=== PATIENT | male | born 1960 | race Caucasian/White ===

== ENCOUNTER 2020-05-08 11:05 | Inpatient (IN) ==
[2020-05-08] MEDS ORDERED: CARDIZEM INJ 50 MG VIAL ONE (11:26)
[2020-05-08] MEDS ORDERED: CARDIZEM INJ 50 MG VIAL IVP ONE ×2 (11:27→11:45)
[2020-05-08] MEDS ORDERED: TORADOL 30 MG VIAL IVP ONE (11:27)
[2020-05-08] MEDS ORDERED: TORADOL 30 MG VIAL ONE (11:32)
--- NOTE | 2020-05-08 11:32 | DR.SOBA ---
HPI Time Seen Time Seen by Provider: 05/08/20 11:26 Primary Care Physician Primary Care Physician: SHEY Complaints Chief Complaint Doctors Comments: Patient in afib with RVR in Er. Chief Complaint:: PT. C/O SHORTNESS OF BREATH AND CHEST PAIN. ONSET OF FRIDAY. PT. HAS A HX. OF PE. COVID-19 Coronavirus risk:travel/contact w/high risk person: No Has patient experienced Coronavirus symptoms: No Reviewed Nurses Notes Reviewed: Yes Source History Provided: Patient Mode of Arrival Mode of Arrival: Ambulatory Timing Onset of Chief Complaint: 05/05/20 Duration Duration: Days Context Onset:: At Rest History of:: DVT/PE Currently on:: Neither Prehospital Care:: None Modifying Factors Worsens:: Exertion Improves:: Nothing Associated Signs and Symptoms Associated Signs and Symptoms: Leg Swelling (right leg swelling x 1 week) and Anxiety If Chest Pain Quality: Aching If Cough Cough: None PMH PMH Past Medical History: Yes Past Medical History: GERD Past Medical History Comment: PE, BPH, DVT, HIATAL HERNIA Past Surgical History: No Surgical History: No History Family History History of Family Medical Conditions: No Social History Does patient currently use any type of tobacco product: Yes Have you used tobacco products in the last 12 months: Yes Type of Tobacco Use: Cigarettes Does any household member use tobacco: Yes Alcohol Use: None Do you use any recreational Drugs:: No Lives With: Family Lives Where: Home Travel Risk Coronavirus risk:travel/contact w/high risk person: No Has patient experienced Coronavirus symptoms: No Infectious screening In the last 2 months have you had wt loss of >10#?: NO Have you had fever, night sweats or hemotysis?: No Have you traveled outside the country in the last 6 months?: No Isolation: Standard ROS Review of Systems Constitutional: No Symptoms Reported Eyes: No Symptoms Reported ENTM: No Symptoms Reported Respiratoy: Short of Breath Cardiovascular: Chest Pain Gastrointestinal/Abdominal: No Symptoms Reported Genitourinary: No Symptoms Reported Neurological: No Symptoms Reported Musculoskeletal: No Symptoms Reported Integumentary: No Symptoms Reported Endocrine: No Symptoms Reported Psychiatric: Anxiety All Other Systems: Reviewed and Negative PE Vital Signs Vitals: Temperature 98.3 F Pulse Rate 133 Respiratory Rate 21 Blood Pressure 112/84 O2 Sat by Pulse Oximetry 98 General Limitations: No Limitations General Appearance: Alert and Anxious; negative In No Apparent Distress Head Head Exam: Normal Inspection, Atraumatic and Normocephalic Eyes Eye exam: Normal Appearance and EOMI ENT ENT Exam: Normal Exam and Normal Oropharynx Neck Neck Exam: Normal Inspection, Full ROM and Trachea Midline Chest Chest Inspection: Normal Inspection Respiratory Respiratory Exam: Normal Lung Sounds Bilat; negative Accessory Muscle Use Respiratory Exam: Bilateral: Clear to Auscultation Cardiovascular Cardiovascular Exam: Normal Rhythm and Tachycardia Abdominal Exam Abdominal Exam: Normal Inspection, Normal Bowel Sounds and Soft; negative Distention, Tenderness and Guarding Abdominal Tenderness: negative RUQ, RLQ, LUQ, LLQ, Epigastrium, Suprapubic, Diffuse, Mild, Moderate, Severe and Other Extremities Extremities Exam: Normal Inspection and Full ROM Back Back Exam: Normal Inspection and Full ROM Neurologic Neurological Exam: Alert, Oriented X3, CN II-XII Intact and Normal Gait Psychiatric Psychiatric Exam: Anxious ROR Labs Reviewed Result Diagrams: 05/08/20 11:25 05/08/20 11:25 Laboratory: WBC 5.6 X10^3/uL (3.6-10.0) 05/08/20 11:25 RBC 3.57 X10^6/uL (4.7-6.0) L 05/08/20 11:25 Hgb 12.0 g/dL (13.5-18.0) L 05/08/20 11:25 Hct 35.6 % (42.0-54.0) L 05/08/20 11:25 MCV 99.8 fL (80.0-100.0) 05/08/20 11:25 MCH 33.5 pg (27.0-34.0) 05/08/20 11:25 MCHC 33.6 g/dL (33.0-35.0) 05/08/20 11:25 RDW 13.7 % (11.6-16.5) 05/08/20 11:25 Plt Count 147 X10^3/uL (150.0-450.0) L 05/08/20 11:25 MPV 9.5 fL (7.4-11.0) 05/08/20 11:25 Neut % (Auto) 78.1 % (42.0-75.0) H 05/08/20 11:25 Lymph % (Auto) 11.2 % (21.0-51.0) L 05/08/20 11:25 Motley % (Auto) 9.1 % (0.0-13.0) 05/08/20 11:25 Eos % (Auto) 0.9 % (0.9-2.9) 05/08/20 11:25 Baso % (Auto) 0.7 % (0.2-1.0) 05/08/20 11:25 Neut # (Auto) 4.4 x10^3/uL (2.2-4.8) 05/08/20 11:25 Lymph # (Auto) 0.6 X10^3/uL (1.3-2.9) L 05/08/20 11:25 Motley # (Auto) 0.5 x10^3/uL (0.3-0.8) 05/08/20 11:25 Eos # (Auto) 0.0 x10^3/uL (0.0-0.2) 05/08/20 11:25 Baso # (Auto) 0.0 X10^3/uL (0.0-0.1) 05/08/20 11:25 Absolute Nucleated RBC 0.1 /100WBC 05/08/20 11:25 PT 15.8 SECONDS (11.8-14.3) 05/08/20 11:25 INR Target Range - 05/08/20 11:25 INR 1.30 (0.8-1.3) 05/08/20 11:25 D-Dimer 1.55 ug/ml (0.0-0.57) H* 05/08/20 11:25 Sodium 132 mmol/L (136-145) L 05/08/20 11:25 Corrected Sodium 134 mmol/L (136-145) L 05/08/20 11:25 Potassium 3.8 mmol/L (3.5-5.1) 05/08/20 11:25 Chloride 101 mmol/L (98-107) 05/08/20 11:25 Carbon Dioxide 25.4 mmol/L (21-32) 05/08/20 11:25 BUN 16 mg/dL (7-18) 05/08/20 11:25 Creatinine 1.19 mg/dL (0.70-1.30) 05/08/20 11:25 Est GFR (MDRD) Af Amer > 60 (>60) 05/08/20 11:25 Est GFR (MDRD) Non-Af > 60 (>60) 05/08/20 11:25 Glucose 192 mg/dL (65-99) H 05/08/20 11:25 Calcium 8.3 mg/dL (8.5-10.1) L 05/08/20 11:25 Corrected Calcium 9.4 mg/dL (8.5-10.1) 05/08/20 11:25 Total Bilirubin 1.20 mg/dL (0.2-1.0) H 05/08/20 11:25 AST 96 Units/L (15-37) H 05/08/20 11:25 ALT 98 Units/L (12-78) H 05/08/20 11:25 Alkaline Phosphatase 82 Units/L (46-116) 05/08/20 11:25 Creatine Kinase 214 Units/L (39-308) 05/08/20 11:25 CK-MB (CK-2) 2.2 ng/mL (0-4.0) 05/08/20 11:25 CK/CKMB % Calc 1.0 % (<4) 05/08/20 11:25 Troponin I < 0.02 ng/mL (0-1.5) 05/08/20 11:25 B-Natriuretic Peptide 475 pg/mL (0-79) H 05/08/20 11:25 Total Protein 6.2 g/dL (6.4-8.2) L 05/08/20 11:25 Albumin 2.6 g/dL (3.4-5.0) L 05/08/20 11:25 Globulin 3.6 g/dL (2.5-4.5) 05/08/20 11:25 Albumin/Globulin Ratio 0.7 Ratio (1.1-2.1) L 05/08/20 11:25 SARS-CoV-2 (PCR) Negative (NEGATIVE) 05/08/20 13:25 XRAY XRAY Interpreted by: Radiologist X-ray Results: CTA chest: no PE, Effusion/pneumonia? EKG Rate: 175 Rhythm: Afib (rapid response) Opioid Opioid Risk Tool Age (Sal box if 16-45): No History of Preadolescent Sexual Abuse: No Total: 0 Total Score Risk Category: Low Risk Copyright: [employer] predicting aberrant behaviors Diagnosis Discharge Problem: Acute dyspnea Atrial fibrillation Qualifiers: Atrial fibrillation type: unspecified Qualified Code(s): I48.91 - Unspecified atrial fibrillation Instructions Forms: Precautions for COVID19 Patient Portal Social Distancing
[2020-05-08] MEDS ORDERED: ELIQUIS PO ONE (11:46)
[2020-05-08 11:48] LABS: BASOPHILS % (AUTO) 0.7 % (0.2-1.0); EOSINOPHILS % (AUTO) 0.9 % (0.9-2.9); HEMATOCRIT 35.6 % (42.0-54.0); LYMPHOCYTES # (AUTO) 0.6 X10^3/uL (1.3-2.9); LYMPHOCYTES % (AUTO) 11.2 % (21.0-51.0); MEAN CORPUSCULAR HEMOGLOBIN 33.5 pg (27.0-34.0); MEAN CORPUSCULAR HGB CONC 33.6 g/dL (33.0-35.0); MEAN CORPUSCULAR VOLUME 99.8 fL (80.0-100.0); MEAN PLATELET VOLUME 9.5 fL (7.4-11.0); MONOCYTES # (AUTO) 0.5 x10^3/uL (0.3-0.8); MONOCYTES % (AUTO) 9.1 % (0.0-13.0); NEUTROPHILS # (AUTO) 4.4 x10^3/uL (2.2-4.8); NEUTROPHILS % (AUTO) 78.1 % (42.0-75.0); PLATELET COUNT 147 X10^3/uL (150.0-450.0); RED BLOOD COUNT 3.57 X10^6/uL (4.7-6.0); RED CELL DISTRIBUTION WIDTH 13.7 % (11.6-16.5); WHITE BLOOD COUNT 5.6 X10^3/uL (3.6-10.0)
[2020-05-08] MEDS ORDERED: NS 1000 ML 1,000 ML ONE (11:58)
--- NOTE | 2020-05-08 11:59 | RAD ---
HISTORYCPSTUDYCHEST, 1 VIEWCOMPARISONNoneFINDINGSThe trachea is midline. The cardiac silhouette is unremarkable . The lungs are clear without focal infiltrate or effusion. The bony thorax is unremarkable.IMPRESSIONNo acute cardiopulmonary disease.Electronically signed by: AMI MILLER (May 08, 2020 11:58:02)
[2020-05-08] MEDS: NS 1000 ML 1,000 ML IV SCH ×2 (12:05→22:00)
[2020-05-08] MEDS: CARDIZEM INJ 125 MG VIAL 125 MG in NS 100 ML IV 100 ML IV PRN ×3 (12:10→22:18)
[2020-05-08 12:28] LABS: BLOOD UREA NITROGEN 16 mg/dL (7-18); CALCIUM 8.3 mg/dL (8.5-10.1); CARBON DIOXIDE 25.4 mmol/L (21-32); CHLORIDE 101 mmol/L (98-107); COR NA(FOR HYPERGLY) 134 mmol/L (136-145); CREATININE 1.19 mg/dL (0.70-1.30); SODIUM 132 mmol/L (136-145); TROPONIN I < 0.02 ng/mL (0-1.5); eGFR NON BLACK RACES > 60 (>60)
[2020-05-08 12:43] LABS: ALANINE AMINOTRANSFERASE 98 Units/L (12-78); ALBUMIN 2.6 g/dL (3.4-5.0); ALKALINE PHOSPHATASE 82 Units/L (46-116); ASPARTATE AMINO TRANSFERASE 96 Units/L (15-37); COR CA(FOR HYPOALB) 9.4 mg/dL (8.5-10.1); CREATINE KINASE 214 Units/L (39-308); CREATINE KINASE MB 2.2 ng/mL (0-4.0); TOTAL PROTEIN 6.2 g/dL (6.4-8.2)
--- NOTE | 2020-05-08 13:07 | CT ---
HISTORYELEVATED DDIMERSTUDYCTA CHESTCOMPARISONNoneTECHNIQUEMultiple axial images of the chest were obtained from the thoracic inlet to the upper abdomen after the administration of IV contrast. 3D reconstructions utilizing axial MIPS imaging was performed and reviewed. Dose reduction techniques including Automated Exposure Control (AEC) and adjustment of mA and kV were utilized.FINDINGSThe mediastinum does not demonstrate significant pathological lymphadenopathy. Small reactive lymph nodes are noted. There is no pericardial effusion observed. The thoracic aorta is normal in its contour without evidence for aneurysmal dilatation. The central pulmonary arterial system does not demonstrate central filling defects to suggest pulmonary emboli.Evaluation of the lung parenchyma demonstrates small layering effusions with associated infiltrates which may be on the basis of atelectasis versus pneumonia.. No pulmonary nodule or mass can be identified. The bony thorax is unremarkable in its appearance . The visualized portions of the upper abdomen are grossly unremarkable .IMPRESSIONSmall layering effusions with bibasilar infiltratesElectronically signed by: AMI MILLER (May 08, 2020 13:05:19)
[2020-05-08] MEDS ORDERED: CARDIZEM INJ 125 MG VIAL 125 MG in NS 100 ML IV 100 ML IV PRN (14:04)
[2020-05-08] MEDS: XOPENEX 1.25 MG/3 ML NEBULE NEB SCH ×2 (16:45→20:05)
[2020-05-08] MEDS ORDERED: PROVENTIL NEB TX 0.083% 2.5MG/ 3ML NEB SCH (17:00)
[2020-05-08 17:40] VITALS: BMI 28.0
[2020-05-08] MEDS: PROTONIX TAB 40 MG PO SCH (18:39)
[2020-05-08 19:53] LABS: ABG BASE EXCESS 0.9 mmol/L (-2.0-2.0); ABG HCO3 23.1 mmol/L (22-26)
[2020-05-08] MEDS: PULMICORT NEB TX 0.5 MG NEB SCH (20:05)
[2020-05-08 20:32] LABS: BILIRUBIN,URINE 1+ (NEGATIVE); BLOOD/HEMOGLOBIN,URINE 1+ (NEGATIVE); GLUCOSE, URINE 1+ (NEGATIVE); KETONES,URINE 1+ (NEGATIVE); LEUKOCYTE ESTERASE ,URINE 1+ (NEGATIVE); NITRITES,URINE NEGATIVE (NEGATIVE); PROTEIN,URINE 2+ (NEGATIVE); UROBILINOGEN,URINE 2+ (NORMAL)
[2020-05-08 20:38] LABS: APPEARANCE,URINE CLEAR (CLEAR); BACTERIA,URINE TRACE /HPF (NEGATIVE); COLOR,URINE AMBER (YELLOW); RBC,URINE 0-2 /HPF (0-3); SQUAMOUS EPITHELIAL CELL,UR FEW /HPF (NEGATIVE)
[2020-05-08] MEDS: BENADRYL INJ 50 MG VIAL IVP SCH (21:00)
[2020-05-08] MEDS: ELIQUIS PO SCH (22:00)
[2020-05-08] MEDS: FLOMAX PO SCH (22:21)
[2020-05-09] MEDS: BENADRYL INJ 50 MG VIAL IVP SCH ×2 (03:17→11:34)
[2020-05-09] MEDS: NS 1000 ML 1,000 ML IV SCH ×5 (05:19→20:44)
[2020-05-09 06:07] LABS: BASOPHILS % (AUTO) 0.7 % (0.2-1.0); EOSINOPHILS # (AUTO) 0.1 x10^3/uL (0.0-0.2); EOSINOPHILS % (AUTO) 1.1 % (0.9-2.9); HEMATOCRIT 35.1 % (42.0-54.0); HEMOGLOBIN 11.9 g/dL (13.5-18.0); LYMPHOCYTES # (AUTO) 0.5 X10^3/uL (1.3-2.9); LYMPHOCYTES % (AUTO) 6.9 % (21.0-51.0); MEAN CORPUSCULAR HEMOGLOBIN 33.7 pg (27.0-34.0); MEAN CORPUSCULAR HGB CONC 33.7 g/dL (33.0-35.0); MEAN CORPUSCULAR VOLUME 99.8 fL (80.0-100.0); MEAN PLATELET VOLUME 9.6 fL (7.4-11.0); MONOCYTES # (AUTO) 0.6 x10^3/uL (0.3-0.8); MONOCYTES % (AUTO) 9.5 % (0.0-13.0); NEUTROPHILS # (AUTO) 5.4 x10^3/uL (2.2-4.8); NEUTROPHILS % (AUTO) 81.8 % (42.0-75.0); PLATELET COUNT 154 X10^3/uL (150.0-450.0); RED BLOOD COUNT 3.52 X10^6/uL (4.7-6.0); RED CELL DISTRIBUTION WIDTH 13.8 % (11.6-16.5); WHITE BLOOD COUNT 6.6 X10^3/uL (3.6-10.0)
[2020-05-09] MEDS: CARDIZEM INJ 125 MG VIAL 125 MG in NS 100 ML IV 100 ML IV PRN ×2 (06:32→20:45)
[2020-05-09 06:40] LABS: ALANINE AMINOTRANSFERASE 81 Units/L (12-78); ALBUMIN 2.5 g/dL (3.4-5.0); ALKALINE PHOSPHATASE 75 Units/L (46-116); ASPARTATE AMINO TRANSFERASE 59 Units/L (15-37); BLOOD UREA NITROGEN 14 mg/dL (7-18); CALCIUM 8.1 mg/dL (8.5-10.1); CARBON DIOXIDE 25.6 mmol/L (21-32); CHLORIDE 104 mmol/L (98-107); CKMB % 0.9 % (<4); COR CA(FOR HYPOALB) 9.3 mg/dL (8.5-10.1); CREATINE KINASE 110 Units/L (39-308); CREATINE KINASE MB < 1.0 ng/mL (0-4.0); CREATININE 0.95 mg/dL (0.70-1.30); SODIUM 138 mmol/L (136-145); TOTAL PROTEIN 6.1 g/dL (6.4-8.2); TROPONIN I < 0.02 ng/mL (0-1.5); eGFR NON BLACK RACES > 60 (>60)
[2020-05-09] MEDS ORDERED: PROSCAR ONE (07:54)
[2020-05-09] MEDS: XOPENEX 1.25 MG/3 ML NEBULE NEB SCH ×4 (08:10→20:46)
[2020-05-09] MEDS: PULMICORT NEB TX 0.5 MG NEB SCH ×2 (08:10→20:46)
[2020-05-09] MEDS: ELIQUIS PO SCH ×2 (08:23→20:44)
[2020-05-09] MEDS: PROSCAR PO SCH (08:23)
[2020-05-09] MEDS: PROTONIX TAB 40 MG PO SCH (08:24)
[2020-05-09] MEDS: LOPRESSOR TAB 25 MG PO SCH ×2 (08:26→20:44)
[2020-05-09] MEDS: SEROquel TAB 25 mg PO SCH ×4 (08:27→20:45)
[2020-05-09] MEDS: NICOTINE PATCH TD SCH (11:32)
[2020-05-09] MEDS: TYLENOL 325 MG TAB PO PRN ×2 (11:32→18:20)
--- NOTE | 2020-05-09 13:56 | DR.H&P ---
H&P - History & Physical for Day of: H&P Date: 05/08/20 - Chief Complaint Chief Complaint: SOB - History of Present Illness History of Present Illness: PT IS 59WM ER ADMISSION WITH CO SOB. PT REPORTS HE HAS HAD BLOOD CLOT IN HIS LUNGS IN THE PAST. PT IS A DAILY SMOKER AND DENIES ANY KNOWN COVID EXPOSURE. PT WAS IN AFIB WITH RVR IN ER, ADMITTED TO ICU. CTA CHEST REVEALED -PE, + EFFUSIONS/ PNEUMONIA. - Past Medical History Past Medical History: Arthritis, GERD - Past Surgical History Surgical History: No History - Family History Family Medical History: Diabetes Mellitus, Cancer, Hypertension - Social History Does patient currently use any type of tobacco product: Yes Have you used tobacco products in the last 12 months: Yes Type of Tobacco Use: Cigarettes Does any household member use tobacco: Yes Alcohol Use: None Drug Use: None - Medications Home Medications: No Known Drug Allergies Allergy (Verified 05/08/20 11:22) CONTINUE taking the following medications apixaban [Eliquis] 5 mg PO BID 05/08/20 [History] finasteride 5 mg PO DAILY 05/08/20 [History] pantoprazole 40 mg PO DAILY 05/08/20 [History] tamsulosin 0.4 mg PO HS 05/08/20 [History] - Review of Systems Constitutional: denies: Fever Eyes: No Symptoms Reported Respiratory: Shortness of Breath Cardiovascular: Palpitations Gastrointestinal: Nausea Genitourinary: No Symptoms Reported Musculoskeletal: No Symptoms Reported Skin: No Symptoms Reported Neurological: No Symptoms Reported - Physical Exam Vital Signs: Temperature 98.3 F Pulse Rate 78 Respiratory Rate 14 Blood Pressure 94/55 O2 Sat by Pulse Oximetry 94 Oriented: Normal Eyes: Normal Ear: Normal Nose: Normal Throat: Normal Respiratory: Diminished Throughout Cardiovascular: Tachycardia, Irregular : Normal Auscultation: Bowel Sounds: Normal Palpation: Normal Tenderness: Normal Skin: Decreased Turgur Musculoskeletal: Normal Psychiatric: Anxiety Affect: Anxious Speech Pattern: Clear, Appropriate - Assessment/Plan (1) Atrial fibrillation Qualifiers: Atrial fibrillation type: unspecified Qualified Code(s): I48.91 - Unspecified atrial fibrillation Status: Acute Plan: ADMIT, ICU. CARDIZEM DRIP, SERIAL CE AND EKG. BP CONTROL, ATBX THERAPY, RESP CONSULT. SUPPLEMENTAL O2. COVID 19 ON ADMISSION (2) Acute dyspnea Status: Acute - Allergies Allergies/Adverse Reactions: Allergies Allergy/AdvReac Type Severity Reaction Status Date / Time No Known Drug Allergies Allergy Verified 05/08/20 11:22
[2020-05-09] MEDS: ROCEPHIN 1 GRAM IV PREMIX 1 G/50 ML IV.SOLN. IV SCH (18:19)
[2020-05-09] MEDS: BENADRYL INJ 50 MG VIAL IVP PRN (18:33)
[2020-05-09] MEDS ORDERED: PREVNAR 13 IM ONE (19:00)
[2020-05-09] MEDS: FLOMAX PO SCH (20:44)
[2020-05-09] MEDS: NEURONTIN CAP 100 MG PO PRN (22:40)
[2020-05-10] MEDS: BENADRYL INJ 50 MG VIAL IVP PRN ×2 (05:00→22:51)
[2020-05-10] MEDS: NEURONTIN CAP 100 MG PO PRN ×3 (05:00→21:43)
[2020-05-10] MEDS: NS 1000 ML 1,000 ML IV SCH ×3 (05:14→21:41)
[2020-05-10 05:42] LABS: BASOPHILS % (AUTO) 0.9 % (0.2-1.0); EOSINOPHILS # (AUTO) 0.1 x10^3/uL (0.0-0.2); EOSINOPHILS % (AUTO) 2.6 % (0.9-2.9); HEMATOCRIT 36.2 % (42.0-54.0); LYMPHOCYTES # (AUTO) 0.5 X10^3/uL (1.3-2.9); MEAN CORPUSCULAR HEMOGLOBIN 33.4 pg (27.0-34.0); MEAN CORPUSCULAR HGB CONC 33.2 g/dL (33.0-35.0); MEAN CORPUSCULAR VOLUME 100.6 fL (80.0-100.0); MONOCYTES # (AUTO) 0.6 x10^3/uL (0.3-0.8); MONOCYTES % (AUTO) 11.4 % (0.0-13.0); NEUTROPHILS % (AUTO) 76.1 % (42.0-75.0); PLATELET COUNT 151 X10^3/uL (150.0-450.0); RED BLOOD COUNT 3.59 X10^6/uL (4.7-6.0); RED CELL DISTRIBUTION WIDTH 13.5 % (11.6-16.5); WHITE BLOOD COUNT 5.2 X10^3/uL (3.6-10.0)
[2020-05-10 05:48] LABS: ALANINE AMINOTRANSFERASE 66 Units/L (12-78); ALBUMIN 2.4 g/dL (3.4-5.0); ALKALINE PHOSPHATASE 77 Units/L (46-116); ASPARTATE AMINO TRANSFERASE 38 Units/L (15-37); BLOOD UREA NITROGEN 13 mg/dL (7-18); CALCIUM 8.1 mg/dL (8.5-10.1); CARBON DIOXIDE 21.8 mmol/L (21-32); CHLORIDE 105 mmol/L (98-107); COR CA(FOR HYPOALB) 9.4 mg/dL (8.5-10.1); SODIUM 137 mmol/L (136-145); eGFR NON BLACK RACES > 60 (>60)
[2020-05-10] MEDS: TYLENOL 325 MG TAB PO PRN ×3 (06:01→21:15)
[2020-05-10] MEDS: SEROquel TAB 25 mg PO SCH ×3 (09:00→17:35)
[2020-05-10] MEDS: ROCEPHIN 1 GRAM IV PREMIX 1 G/50 ML IV.SOLN. IV SCH (09:00)
[2020-05-10] MEDS: ELIQUIS PO SCH ×2 (09:00→21:41)
[2020-05-10] MEDS: PROSCAR PO SCH (09:01)
[2020-05-10] MEDS: NICOTINE PATCH TD SCH (09:01)
[2020-05-10] MEDS: PROTONIX TAB 40 MG PO SCH (09:01)
[2020-05-10] MEDS: LOPRESSOR TAB 25 MG PO SCH (09:01)
[2020-05-10] MEDS: PULMICORT NEB TX 0.5 MG NEB SCH ×2 (09:50→21:13)
[2020-05-10] MEDS ORDERED: MAALOX or MYLANTA PO PRN (09:50)
[2020-05-10] MEDS: XOPENEX 1.25 MG/3 ML NEBULE NEB SCH ×3 (09:50→16:28)
--- NOTE | 2020-05-10 09:54 | RAD ---
HISTORYPneumoniaSTUDYChest AP [id number] plain film and CTA chestFINDINGSThe heart is enlarged. The evi are prominent and somewhat indistinct and there is some perihilar interstitial change suggestive of mild interstitial edema. The upper lung hidalgo are clear. Bilateral lower lobe infiltrate and bilateral pleural effusions are present both increasing since the prior examination. Bony thorax is unremarkable.IMPRESSIONCardiomegaly with interval development of mild congestive heart failureIncreasing bilateral lower lobe infiltrates and increasing bilateral pleural effusions when compared with the CTA chest 05/08/2020Electronically signed by: RENAE SAMPSON (May 10, 2020 09:52:26)
[2020-05-10] MEDS ORDERED: XOPENEX 1.25 MG/3 ML NEBULE NEB ONE (11:46)
[2020-05-10] MEDS: CARDIZEM INJ 125 MG VIAL 125 MG in NS 100 ML IV 100 ML IV PRN (12:28)
[2020-05-10] MEDS: LASIX IVP SCH (13:58)
[2020-05-10] MEDS: CARDIZEM ER 60 MG 12-HR PO SCH ×2 (14:00→22:50)
--- NOTE | 2020-05-10 15:10 | VAS ---
HISTORYBilateral leg swellingSTUDYBilateral lower extremity venous ultrasoundCOMPARISONNoneFINDINGSUltrasound evaluation of the deep venous system of both legs was perf ormed from the level of the inguinal ligament down to the calf. On both sides, the deep system is wid mo patent with good flow and compressibility seen along their course. No evidence of intraluminal th rombus is seen in either leg.IMPRESSIONNo deep vein thrombosis is identified in either lower extremit y.Electronically signed by: YAKOV CESAR (May 10, 2020 15:08:38)
[2020-05-10] MEDS: FLOMAX PO SCH (21:41)
[2020-05-11] MEDS: NS 1000 ML 1,000 ML IV SCH ×2 (04:51→12:55)
[2020-05-11] MEDS: CARDIZEM ER 60 MG 12-HR PO SCH ×2 (05:00→12:59)
[2020-05-11 05:18] LABS: BASOPHILS % (AUTO) 0.7 % (0.2-1.0); EOSINOPHILS # (AUTO) 0.2 x10^3/uL (0.0-0.2); HEMOGLOBIN 12.5 g/dL (13.5-18.0); LYMPHOCYTES # (AUTO) 0.6 X10^3/uL (1.3-2.9); LYMPHOCYTES % (AUTO) 9.9 % (21.0-51.0); MEAN CORPUSCULAR HEMOGLOBIN 32.7 pg (27.0-34.0); MEAN CORPUSCULAR HGB CONC 32.7 g/dL (33.0-35.0); MEAN CORPUSCULAR VOLUME 99.9 fL (80.0-100.0); MONOCYTES # (AUTO) 0.8 x10^3/uL (0.3-0.8); MONOCYTES % (AUTO) 13.6 % (0.0-13.0); NEUTROPHILS # (AUTO) 4.2 x10^3/uL (2.2-4.8); NEUTROPHILS % (AUTO) 71.8 % (42.0-75.0); PLATELET COUNT 185 X10^3/uL (150.0-450.0); RED CELL DISTRIBUTION WIDTH 13.8 % (11.6-16.5); WHITE BLOOD COUNT 5.8 X10^3/uL (3.6-10.0)
[2020-05-11 05:27] LABS: ALANINE AMINOTRANSFERASE 52 Units/L (12-78); ALBUMIN 2.3 g/dL (3.4-5.0); ALKALINE PHOSPHATASE 75 Units/L (46-116); ASPARTATE AMINO TRANSFERASE 28 Units/L (15-37); BLOOD UREA NITROGEN 11 mg/dL (7-18); CALCIUM 8.4 mg/dL (8.5-10.1); CARBON DIOXIDE 26.3 mmol/L (21-32); CHLORIDE 106 mmol/L (98-107); COR CA(FOR HYPOALB) 9.8 mg/dL (8.5-10.1); COR NA(FOR HYPERGLY) 141 mmol/L (136-145); CREATININE 0.99 mg/dL (0.70-1.30); SODIUM 141 mmol/L (136-145); eGFR NON BLACK RACES > 60 (>60)
--- NOTE | 2020-05-11 06:13 | RAD ---
HISTORYPNEUMONIASTUDYCHEST, 1 VIEWCOMPARISONOne day prior.TECHNIQUEAP view of the chest 2 imagesFINDINGSCardiac and mediastinal contours appear stable. Stable mid and lower lung predominant airspace disease. No pneumothorax. No large pleural effusion.IMPRESSIONNo significant change.Electronically signed by: Sage Boyce (May 11, 2020 06:11:45)
[2020-05-11] MEDS: XOPENEX 1.25 MG/3 ML NEBULE NEB SCH ×2 (06:24→12:05)
[2020-05-11] MEDS ORDERED: POTASSIUM CHLORIDE LIQ 20 MEQ UDC PO PRN (06:47)
[2020-05-11] MEDS ORDERED: POTASSIUM CHL 40 MEQ/NS 0.45% 500 ML IV PRN (06:47)
[2020-05-11] MEDS ORDERED: K-DUR TAB 20 MEQ PO PRN (06:47)
[2020-05-11] MEDS ORDERED: K-RIDER 10 MEQ/NS 100 ML 10 MEQ/100 ML BAG IV PRN (06:47)
[2020-05-11] MEDS ORDERED: POTASSIUM CHL 60 MEQ/NS 0.45% 500 ML IV PRN (06:47)
[2020-05-11] MEDS ORDERED: KLOR-CON PO PRN (06:47)
[2020-05-11] MEDS ORDERED: MICRO K EXTEN CAP 10 MEQ PO PRN (06:47)
[2020-05-11] MEDS: PROTONIX TAB 40 MG PO SCH (08:40)
[2020-05-11] MEDS: ROCEPHIN 1 GRAM IV PREMIX 1 G/50 ML IV.SOLN. IV SCH (08:40)
[2020-05-11] MEDS: PROSCAR PO SCH (08:40)
[2020-05-11] MEDS: BENADRYL INJ 50 MG VIAL IVP PRN (08:40)
[2020-05-11] MEDS: LASIX IVP SCH (08:41)
[2020-05-11] MEDS: ELIQUIS PO SCH (08:41)
[2020-05-11] MEDS: NICOTINE PATCH TD SCH (08:41)
[2020-05-11] MEDS: TYLENOL 325 MG TAB PO PRN (08:42)
[2020-05-11] MEDS: SEROquel TAB 25 mg PO SCH ×2 (09:03→17:15)
[2020-05-11] MEDS: PULMICORT NEB TX 0.5 MG NEB SCH (09:30)
[2020-05-11] MEDS ORDERED: LANOXIN INJ IVP ONE (13:08)
[2020-05-11] MEDS ORDERED: LANOXIN INJ ONE (13:11)
[2020-05-11] MEDS ORDERED: CARDIZEM INJ 125 MG VIAL 125 MG in NS 100 ML IV 100 ML IV PRN (13:18)
[2020-05-11 17:06] VITALS: BP 134/85
== END 2020-05-11 17:30 | disposition short-term general hospital (02) | DRG 308 ==
LOC: ER 11:15 → ICU 14:48
PROVIDERS: ADMIT Internal Medicine; ATTEND Internal Medicine
DX: J18.9 Pneumonia, unspecified organism; J44.9 Chronic obstructive pulmonary disease, unspecified; Z79.899 Other long term (current) drug therapy; Z20.828 Contact with and (suspected) exposure to other viral communicable diseases; R26.89 Other abnormalities of gait and mobility; I48.91 Unspecified atrial fibrillation; R94.31 Abnormal electrocardiogram [ECG] [EKG]; R07.89 Other chest pain; Z86.711 Personal history of pulmonary embolism; Z79.01 Long term (current) use of anticoagulants; R06.00 Dyspnea, unspecified; R06.02 Shortness of breath; I50.9 Heart failure, unspecified; Z23 Encounter for immunization; F12.90 Cannabis use, unspecified, uncomplicated; R60.0 Localized edema